=== PATIENT | male | born 1980 | race Caucasian/White ===

== ENCOUNTER 2024-12-06 18:00 | Inpatient (IN) ==
[2024-12-06] MEDS ORDERED: IOPAMIDOL 100 ML BOTTLE IV ONE (18:01)
[2024-12-06] MEDS: ACETAMINOPHEN 325 MG TABLET PO ONE (18:34)
[2024-12-06 18:46] LABS: Basophils # (Auto) 0.05 K/mcL (0.00-0.30); Basophils % (Auto) 0.3 % (0.0-2.0); Eosinophils # (Auto) 0.03 K/mcL (0.00-0.70); Eosinophils % (Auto) 0.2 % (0.0-7.0); Hematocrit 40.1 % (40.1-51.0); Hemoglobin 13.5 g/dL (13.7-17.5); Lymphocytes # (Auto) 0.96 K/mcL (1.50-4.80); Lymphocytes % (Auto) 5.9 % (15.5-49.0); Mean Cell Volume 90.1 fL (80.0-100.0); Mean Corpuscular HGB Conc 33.7 g/dL (31.0-36.0); Mean Platelet Volume 9.4 fL (8.8-12.5); Monocytes # (Auto) 1.36 K/mcL (0.10-0.90); Monocytes % (Auto) 8.4 % (1.0-12.0); Platelet Count 274 K/mcL (140-440); RBC 4.45 M/mcL (4.63-6.08); Red Cell Distribution Width 12.1 % (11.5-14.5); WBC 16.1 K/mcL (4.5-11.0)
[2024-12-06 18:59] LABS: INR 1.2 (0.9-1.1); Prothrombin Time 15.9 sec (11.9-14.5)
[2024-12-06 19:04] LABS: proBNP 67.9 pg/mL (<125.0)
[2024-12-06 19:05] LABS: ALT/SGPT 13 U/L (<40); AST/SGOT 21 U/L (<40); Albumin/Globulin Ratio 1.4 (1.0-2.3); Alkaline Phosphatase 82 U/L (39-117); Bilirubin,Total 0.5 mg/dL (0.1-1.0); Blood Urea Nitrogen 13 mg/dL (6-20); Calcium 9.1 mg/dL (8.6-10.4); Carbon Dioxide 23 mmol/L (22-30); Chloride 96 mmol/L (96-108); Globulin 2.9 gm/dL (2.2-3.7); Glomerular Filtration Rate 103; Glucose 147 mg/dL (70-105); Sodium 132 mmol/L (133-145)
[2024-12-06] MEDS: PIPERACILLIN SODIUM/TAZOBACTAM 3.375 GM in DEXTROSE 5% IN WATER 50 ML IV ONE (19:13)
[2024-12-06 19:48] LABS: Appearance,Urine Clear (Clear); Bilirubin,Urine Negative (Negative); Color,Urine Yellow; Glucose,Urine (UA) Negative (Negative); Ketones,Urine Negative (Negative); Leukocyte Esterase,Urine Negative /uL (Negative); Nitrate,Urine Negative (Negative); PH,Urine 5.5 (5.0-9.0); Protein,Urine 30 mg/dL (Negative); Specific Gravity,Urine <= 1.005 (1.000-1.035); Urine Blood Negative ery/mcL (Negative); Urine RBC 0 /hpf (0-3); Urine Squamous Epithelial Cell 0 /hpf (0-4); Urine WBC 0 /hpf (0-4); Urobilinogen,Urine Normal
[2024-12-06] MEDS: VANCOMYCIN 1,000 MG in 0.9 % SODIUM CHLORIDE 250 ML IV ONE (19:48)
[2024-12-06] MEDS ORDERED: ONDANSETRON 4 MG/2 ML VIAL IV PRN (22:20)
[2024-12-06] MEDS: CEFEPIME 1 GM VIAL ONE (23:25)
[2024-12-06] MEDS: CEFEPIME 2 GM VIAL IV SCH (23:25)
[2024-12-06] MEDS: 0.9 % SODIUM CHLORIDE 10 ML SYRINGE IV SCH (23:25)
[2024-12-06] MEDS: LACTATED RINGERS 1,000 ML IV SCH (23:25)
[2024-12-06] MEDS: VANCOMYCIN PER PHARMACY IV ONE (23:26)
[2024-12-06] MEDS: IBUPROFEN 600 MG TABLET PO PRN (23:34)
[2024-12-07 07:41] LABS: Basophils # (Auto) 0.06 K/mcL (0.00-0.30); Basophils % (Auto) 0.4 % (0.0-2.0); Eosinophils # (Auto) 0.09 K/mcL (0.00-0.70); Eosinophils % (Auto) 0.7 % (0.0-7.0); Hematocrit 38.9 % (40.1-51.0); Hemoglobin 12.8 g/dL (13.7-17.5); Lymphocytes # (Auto) 1.36 K/mcL (1.50-4.80); Lymphocytes % (Auto) 10.1 % (15.5-49.0); Mean Cell Volume 93.3 fL (80.0-100.0); Mean Corpuscular HGB Conc 32.9 g/dL (31.0-36.0); Mean Platelet Volume 10.6 fL (8.8-12.5); Monocytes # (Auto) 1.34 K/mcL (0.10-0.90); Monocytes % (Auto) 9.9 % (1.0-12.0); Neutrophils % (Auto) 78.8 % (38.0-78.0); Platelet Count 218 K/mcL (140-440); RBC 4.17 M/mcL (4.63-6.08); Red Cell Distribution Width 12.4 % (11.5-14.5); WBC 13.5 K/mcL (4.5-11.0)
[2024-12-07] MEDS ORDERED: VANCOMYCIN PER PHARMACY IV SCH (07:45)
[2024-12-07 08:05] LABS: Blood Urea Nitrogen 9 mg/dL (6-20); Calcium 8.7 mg/dL (8.6-10.4); Carbon Dioxide 20 mmol/L (22-30); Chloride 107 mmol/L (96-108); Glomerular Filtration Rate 114; Glucose 92 mg/dL (70-105); Potassium 4.3 mmol/L (3.3-5.1); Sodium 139 mmol/L (133-145)
[2024-12-07] MEDS: ENOXAPARIN 40 MG/0.4 ML SYRINGE SQ SCH (09:57)
[2024-12-07] MEDS: VANCOMYCIN 1,000 MG in 0.9 % SODIUM CHLORIDE 250 ML IV SCH (09:57)
[2024-12-07] MEDS: ACETAMINOPHEN 325 MG TABLET PO PRN (10:13)
[2024-12-08] MEDS: morphine 4 MG/ML VIAL IV ONE (00:05)
[2024-12-08] MEDS: morphine 4 MG/ML VIAL ONE (01:09)
[2024-12-08 07:04] LABS: Basophils # (Auto) 0.05 K/mcL (0.00-0.30); Basophils % (Auto) 0.5 % (0.0-2.0); Eosinophils # (Auto) 0.22 K/mcL (0.00-0.70); Eosinophils % (Auto) 2.2 % (0.0-7.0); Hematocrit 39.6 % (40.1-51.0); Hemoglobin 12.5 g/dL (13.7-17.5); Lymphocytes # (Auto) 0.84 K/mcL (1.50-4.80); Lymphocytes % (Auto) 8.3 % (15.5-49.0); Mean Cell Volume 97.1 fL (80.0-100.0); Mean Corpuscular HGB Conc 31.6 g/dL (31.0-36.0); Monocytes # (Auto) 0.97 K/mcL (0.10-0.90); Monocytes % (Auto) 9.5 % (1.0-12.0); Neutrophils % (Auto) 79.4 % (38.0-78.0); Platelet Count 233 K/mcL (140-440); RBC 4.08 M/mcL (4.63-6.08); Red Cell Distribution Width 12.6 % (11.5-14.5); WBC 10.2 K/mcL (4.5-11.0)
[2024-12-08 07:43] LABS: Blood Urea Nitrogen 7 mg/dL (6-20); Calcium 8.7 mg/dL (8.6-10.4); Carbon Dioxide 21 mmol/L (22-30); Chloride 100 mmol/L (96-108); Glomerular Filtration Rate 114; Glucose 103 mg/dL (70-105); Potassium 4.2 mmol/L (3.3-5.1); Sodium 133 mmol/L (133-145)
[2024-12-08 07:46] LABS: C-Reactive Protein 8.86 mg/dL (0.03-0.80)
[2024-12-08] MEDS: VANCOMYCIN 1,000 MG in 0.9 % SODIUM CHLORIDE 250 ML IV SCH (10:11)
[2024-12-08] MEDS ORDERED: VANCOMYCIN PER PHARMACY IV SCH (12:06)
[2024-12-08] MEDS: LEVOFLOXACIN 750 MG TABLET PO SCH (13:38)
[2024-12-08] MEDS: IBUPROFEN 800 MG TABLET PO PRN (17:12)
[2024-12-08] MEDS: oxyCODONE IR 5 MG TABLET PO ONE ×2 (20:26)
[2024-12-08] MEDS: SULFAMETHOXAZOLE/TRIMETHOPRIM 1 TABLET PO SCH (20:26)
[2024-12-09] MEDS: ACETAMINOPHEN 500 MG TABLET PO ONE (03:10)
[2024-12-09 06:42] LABS: Basophils # (Auto) 0.03 K/mcL (0.00-0.30); Basophils % (Auto) 0.3 % (0.0-2.0); Eosinophils % (Auto) 3.3 % (0.0-7.0); Hematocrit 38.9 % (40.1-51.0); Hemoglobin 12.9 g/dL (13.7-17.5); Lymphocytes # (Auto) 1.19 K/mcL (1.50-4.80); Lymphocytes % (Auto) 13.1 % (15.5-49.0); Mean Cell Volume 92.6 fL (80.0-100.0); Mean Corpuscular HGB Conc 33.2 g/dL (31.0-36.0); Mean Platelet Volume 9.6 fL (8.8-12.5); Monocytes % (Auto) 13.2 % (1.0-12.0); Neutrophils % (Auto) 69.9 % (38.0-78.0); Platelet Count 273 K/mcL (140-440); Red Cell Distribution Width 12.4 % (11.5-14.5); WBC 9.1 K/mcL (4.5-11.0)
[2024-12-09 07:35] LABS: Blood Urea Nitrogen 8 mg/dL (6-20); C-Reactive Protein 7.26 mg/dL (0.03-0.80); Calcium 9.5 mg/dL (8.6-10.4); Carbon Dioxide 24 mmol/L (22-30); Chloride 100 mmol/L (96-108); Glomerular Filtration Rate 108; Glucose 100 mg/dL (70-105); Potassium 4.4 mmol/L (3.3-5.1); Sodium 136 mmol/L (133-145)
[2024-12-09 13:40] LABS: Creatine Kinase 53 U/L (24-195)
[2024-12-10 06:37] LABS: Basophils # (Auto) 0.06 K/mcL (0.00-0.30); Basophils % (Auto) 0.7 % (0.0-2.0); Eosinophils # (Auto) 0.29 K/mcL (0.00-0.70); Eosinophils % (Auto) 3.2 % (0.0-7.0); Hemoglobin 13.8 g/dL (13.7-17.5); Lymphocytes # (Auto) 1.52 K/mcL (1.50-4.80); Lymphocytes % (Auto) 16.9 % (15.5-49.0); Mean Cell Volume 91.5 fL (80.0-100.0); Mean Corpuscular HGB Conc 33.7 g/dL (31.0-36.0); Mean Platelet Volume 9.8 fL (8.8-12.5); Monocytes % (Auto) 13.3 % (1.0-12.0); Neutrophils % (Auto) 65.3 % (38.0-78.0); Platelet Count 341 K/mcL (140-440); RBC 4.48 M/mcL (4.63-6.08); Red Cell Distribution Width 12.4 % (11.5-14.5)
[2024-12-10 06:49] LABS: C-Reactive Protein 5.25 mg/dL (0.03-0.80)
[2024-12-10 07:01] LABS: Blood Urea Nitrogen 10 mg/dL (6-20); Calcium 9.7 mg/dL (8.6-10.4); Carbon Dioxide 24 mmol/L (22-30); Chloride 99 mmol/L (96-108); Glomerular Filtration Rate 108; Glucose 99 mg/dL (70-105); Potassium 4.6 mmol/L (3.3-5.1); Sodium 135 mmol/L (133-145)
[2024-12-10] MEDS: oxyCODONE IR 5 MG TABLET PO PRN (08:04)
[2024-12-10] MEDS: ACETAMINOPHEN 500 MG TABLET PO PRN (08:05)
[2024-12-10 12:32] VITALS: TEMP 97.6; O2SAT 98
== END 2024-12-10 12:06 | disposition home or self-care (01) | DRG 872 ==
LOC: ED 18:00 → MEDSUR 22:16
PROVIDERS: ADMIT Student in an Organized Health Care Education/Training Program; ATTEND Student in an Organized Health Care Education/Training Program